=== PATIENT | female | born 1960 | race Caucasian/White ===

== ENCOUNTER 2018-01-25 01:57 | Emergency (ER) | payer BC, OTHER ==
[2018-01-25] MEDS ORDERED: Ketorolac Tromethamine 60 MG/2 ML VIAL ONE (02:21)
[2018-01-25] MEDS ORDERED: Ondansetron ODT 4 MG TAB ONE (02:21)
[2018-01-25] MEDS ORDERED: HYDROcodone/Acetaminophen 10/325 mg Tablet ONE (02:21)
[2018-01-25] MEDS ORDERED: predniSONE 20 MG TAB ONE (02:36)
== END 2018-01-25 02:40 | disposition home or self-care (01) ==
LOC: NAV ERS 01:57
DX: M54.42 Lumbago with sciatica, left side (principal); F17.210 Nicotine dependence, cigarettes, uncomplicated
CPT/HCPCS: 96372; J1885; J7506; Q0162

== ENCOUNTER 2023-08-12 12:16 | Emergency (ER) | payer BC, SELFPAY ==
[2023-08-12] MEDS ORDERED: Naproxen 500 MG TAB ONE (13:03)
== END 2023-08-12 13:27 | disposition home or self-care (01) ==
LOC: NAV ERS 12:16
DX: S29.011A Strain of muscle and tendon of front wall of thorax, initial encounter (principal); I10 Essential (primary) hypertension; J44.9 Chronic obstructive pulmonary disease, unspecified; F17.210 Nicotine dependence, cigarettes, uncomplicated; X50.0XXA Overexertion from strenuous movement or load, initial encounter